=== PATIENT | male | born 1950 | race Caucasian/White ===

== ENCOUNTER 2017-01-02 07:18 | Emergency (ER) | payer MEDICARE, BC ==
--- NOTE | 2017-01-02 07:27 | EDM.PDOC ---
ED HPI GENERAL MEDICAL PROBLEM - General Chief Complaint: Bite:Animal, Insect Stated Complaint: BEE STING ON EYE Time Seen by Provider: 01/02/17 07:26 Source of Information: Reports: Patient, RN, RN Notes Reviewed History Limitations: Reports: No Limitations - History of Present Illness INITIAL COMMENTS - FREE TEXT/NARRATIVE: Arrives from home with c/o being stung near the Rt eye yesterday by a bee. He reports mild swelling and itching at the site afterwards, and required no specific treatment. However, last night he woke after sleeping several hours to find that the Rt eye was swollen shut. Denies pain. No other areas of itching or rash. Denies swelling of mouth, tongue, or throat. Denies cough, wheezing, or difficulty breathing. Onset Date: 01/01/17 Location: Reports: Face Severity: Moderate Improves with: Reports: None Worsens with: Reports: None Associated Symptoms: Reports: No Other Symptoms - Related Data Allergies Allergy/AdvReac Type Severity Reaction Status Date / Time Penicillins Allergy Cannot Verified 01/02/17 07:25 Remember Home Meds: Home Meds Aspirin [Ecotrin] 81 mg PO DAILY 01/02/17 [History] Lisinopril [Prinivil] 10 mg PO DAILY 01/02/17 [History] Simvastatin [Simvastatin] 10 mg PO DAILY 01/02/17 [History] Past Medical History - Past Health History Medical/Surgical History: Denies Medical/Surgical History Social & Family History - Family History Family Medical History: Noncontributory - Tobacco Use Smoking Status *Q: Never Smoker - Living Situation & Occupation Living situation: Reports: Occupation: Employed ED ROS GENERAL - Review of Systems Review Of Systems: ROS reveals no pertinent complaints other than HPI. ED EXAM, ANIMAL BITE - Physical Exam Exam: See Below Exam Limited By: No Limitations General Appearance: Alert, WD/WN, No Apparent Distress Eye Exam: Right Eye: Periorbital Changes (swelling, edema from bee sting), Left Eye: Normal Inspection, Bilateral Eye: EOMI, PERRL Ears: Normal External Exam Nose: Normal Inspection Throat/Mouth: Normal Inspection, Normal Lips, Normal Teeth, Normal Gums, Normal Oropharynx, Normal Voice, No Airway Compromise Head: Atraumatic, Normocephalic Neck: Normal Inspection, Supple, Non-Tender, Full Range of Motion Respiratory/Chest: No Respiratory Distress, Lungs Clear, Normal Breath Sounds, No Accessory Muscle Use Cardiovascular: Regular Rate, Rhythm Neurological: Alert, Oriented, CN II-XII Intact, Normal Cognition, Normal Gait, No Motor/Sensory Deficits Psychiatric: Normal Affect, Normal Mood Course - Vital Signs Last Recorded V/S: Last Vital Signs Temp 36.4 C 01/02/17 07:31 Pulse 65 01/02/17 07:31 Resp 16 01/02/17 07:31 BP 142/76 H 01/02/17 07:31 Pulse Ox 97 01/02/17 07:31 - Orders/Labs/Meds Orders: Active Orders 24 hr Category Date Time Status Loratadine [Claritin] Med 01/02/17 07:40 Once 10 mg PO ONETIME ONE predniSONE Med 01/02/17 07:39 Once 60 mg PO ONETIME ONE Medication Orders Loratadine (Claritin) 10 mg PO ONETIME ONE Stop: 01/02/17 07:41 Prednisone (Prednisone) 60 mg PO ONETIME ONE Stop: 01/02/17 07:40 Meds: Medications Generic Name Dose Route Start Last Admin Trade Name Jitendraq PRN Reason Stop Dose Admin Loratadine 10 mg 01/02/17 07:40 Claritin PO 01/02/17 07:41 ONETIME ONE Prednisone 60 mg 01/02/17 07:39 Prednisone PO 01/02/17 07:40 ONETIME ONE Departure - Departure Time of Disposition: 07:36 Disposition: Home, Self-Care 01 Condition: Good Clinical Impression: Local reaction to bee sting Qualifiers: Encounter type: initial encounter Injury intent: accidental or unintentional Qualified Code(s): T63.441A - Toxic effect of venom of bees, accidental ( unintentional), initial encounter - Discharge Information Instructions: Bee, Wasp, or Hornet Sting Forms: ED Department Discharge Additional Instructions: Take over the counter Claritin (Loratidine) 10m tablet daily until swelling resolves. Apply ice pack to eye frequently throughout the day for 5 to 10 minutes at a time until the swelling resolves. Rx: Prednisone 20mg Follow up in clinic if not completely improved in 3 days. - My Orders Last 24 Hours: My Active Orders 01/02/17 07:39 predniSONE 60 mg PO ONETIME ONE 01/02/17 07:40 Loratadine [Claritin] 10 mg PO ONETIME ONE - Assessment/Plan Last 24 Hours: My Active Orders 01/02/17 07:39 predniSONE 60 mg PO ONETIME ONE 01/02/17 07:40 Loratadine [Claritin] 10 mg PO ONETIME ONE
[2017-01-02 07:33] VITALS: BP 142/76
[2017-01-02] MEDS ORDERED: predniSONE 20 MG Tab PO ONE (07:39)
[2017-01-02] MEDS ORDERED: Loratadine 10 MG Tab PO ONE (07:40)
== END 2017-01-02 07:49 | disposition home or self-care (01) ==
LOC: DL.ED 07:18
DX: T63.441A Toxic effect of venom of bees, accidental (unintentional), initial encounter (principal); Z88.0 Allergy status to penicillin; Z79.82 Long term (current) use of aspirin; Z79.899 Other long term (current) drug therapy
CPT/HCPCS: 99282; A9270; 99283

== ENCOUNTER 2017-05-11 07:51 | Emergency (ER) | payer MEDICARE, BC ==
[2017-05-11] MEDS ORDERED: Sodium Chloride 0.9% 10 ML Syringe FLUSH PRN (07:53)
[2017-05-11] MEDS ORDERED: Aspirin 81 MG Tab.Chew PO ONE (07:59)
--- NOTE | 2017-05-11 07:59 | EDM.PDOC ---
ED HPI GENERAL MEDICAL PROBLEM - General Stated Complaint: CHEST PAIN Time Seen by Provider: 05/11/17 07:53 Source of Information: Reports: Patient History Limitations: Reports: No Limitations - History of Present Illness INITIAL COMMENTS - FREE TEXT/NARRATIVE: This 67 yo male patient reports to the ED with chest pain. The patient describes his current symptom as more of chest pressure rated at a 2-3/10 at the time of examination. The patient reports his symptoms started last night, got worse this morning, and have improved, but continues to have pressure now. The patient reports a past medical history of hypertension (patient reports he took his blood pressure medications last night as prescribed). The patient also reports he takes a aspirin at night (81 mg) which he took last night. The patient reports he initially thought his pain was acid reflux, but now thinks his symptoms are different than reflux. 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: Aspirin (last night) Mid-Sternal Chest Pain Score (Numeric/FACES): 6 - Related Data Allergies Allergy/AdvReac Type Severity Reaction Status Date / Time Penicillins Allergy Cannot Verified 05/11/17 08:04 Remember Home Meds: Home Meds Aspirin [Ecotrin] 81 mg PO DAILY 01/02/17 [History] Lisinopril [Prinivil] 10 mg PO DAILY 01/02/17 [History] Simvastatin [Simvastatin] 10 mg PO DAILY 01/02/17 [History] Past Medical History - Past Health History Medical/Surgical History: Denies Medical/Surgical History Cardiovascular History: Reports: High Cholesterol, Hypertension - Infectious Disease History Infectious Disease History: Reports: None Social & Family History - Family History Family Medical History: Noncontributory - Tobacco Use Smoking Status *Q: Never Smoker - Caffeine Use Caffeine Use: Reports: Coffee - Recreational Drug Use Recreational Drug Use: No - Living Situation & Occupation Living situation: Reports: Occupation: Employed ED ROS GENERAL - Review of Systems Review Of Systems: ROS reveals no pertinent complaints other than HPI. ED EXAM, GENERAL - Physical Exam Exam: See Below Exam Limited By: No Limitations General Appearance: Alert, WD/WN, Mild Distress Eye Exam: Bilateral Eye: EOMI, Normal Inspection, PERRL Ears: Normal External Exam, Normal Canal, Hearing Grossly Normal, Normal TMs Nose: Normal Inspection, Normal Mucosa, No Blood Throat/Mouth: Normal Inspection, Normal Lips, Normal Teeth, Normal Gums, Normal Oropharynx, Normal Voice, No Airway Compromise Head: Atraumatic, Normocephalic Neck: Normal Inspection, Supple, Non-Tender, Full Range of Motion Respiratory/Chest: No Respiratory Distress, Lungs Clear, Normal Breath Sounds, No Accessory Muscle Use, Chest Non-Tender Cardiovascular: Normal Peripheral Pulses, Regular Rate, Rhythm, No Edema, No Gallop, No JVD, No Murmur, No Rub GI/Abdominal: Normal Bowel Sounds, Soft, Non-Tender, No Organomegaly, No Distention, No Abnormal Bruit, No Mass (Male) Exam: Deferred Rectal (Males) Exam: Deferred Back Exam: Normal Inspection, Full Range of Motion, NT Extremities: Normal Inspection, Normal Range of Motion, Non-Tender, Normal Capillary Refill, No Pedal Edema Neurological: Alert, Oriented, CN II-XII Intact, Normal Cognition, Normal Gait, Normal Reflexes, No Motor/Sensory Deficits Psychiatric: Normal Affect, Normal Mood Skin Exam: Warm, Dry, Intact, Normal Color, No Rash Lymphatic: No Adenopathy Course - Vital Signs Last Recorded V/S: Last Vital Signs Temp 36.6 C 05/11/17 07:57 Pulse 68 05/11/17 08:42 Resp 20 05/11/17 08:42 BP 126/53 L 05/11/17 08:42 Pulse Ox 98 05/11/17 08:42 - Orders/Labs/Meds Orders: Active Orders 24 hr Category Date Time Status EKG Documentation Completion [RC] URGENT Care 05/11/17 07:52 Ordered Chest 1V Frontal [CR] Urgent Exams 05/11/17 07:52 Ordered INR,PT,PROTHROMBIN TIME [COAG] Stat Lab 05/11/17 08:53 Ordered Heparin Sodium/D5W [Heparin 25,000 Units in D5W 500 ML] Med 05/11/17 08:51 Ordered 25,000 units in 500 ml IV ASDIRECTED Sodium Chloride 0.9% @ 125 MLS/HR (1000ml) Med 05/11/17 08:30 Ordered Sodium Chloride 0.9% [Normal Saline] 1,000 ml IV ASDIRECTED Sodium Chloride 0.9% [Saline Flush] Med 05/11/17 07:53 Ordered 10 ml FLUSH ASDIRECTED PRN Saline Lock Insert [OM.PC] Routine Oth 05/11/17 07:53 Ordered Medication Orders Sodium Chloride (Normal Saline) 1,000 mls @ 125 mls/hr IV ASDIRECTED KRISH Last Admin: 05/11/17 08:23 Dose: 125 mls/hr Heparin Sodium/Dextrose (Heparin 25,000 Units In D5w 500 Ml) 25,000 units in 500 mls @ 0 mls/hr IV ASDIRECTED KRISH PRN Reason: 12 UNITS/KG/HR Last Admin: 05/11/17 08:58 Dose: 11.89 units/kg/hr, 25.9 mls/hr Sodium Chloride (Saline Flush) 10 ml FLUSH ASDIRECTED PRN PRN Reason: Keep Vein Open Last Admin: 05/11/17 08:03 Dose: 10 ml Labs: Laboratory Tests 05/11/17 05/11/17 Range/Units 08:03 08:03 WBC 11.1 H (5.0-10.0) 10^3/uL RBC 4.77 (4.6-6.2) 10^6/uL Hgb 14.6 (14.0-18.0) g/dL Hct 44.7 (40.0-54.0) % MCV 93.7 (80-100) fL MCH 30.6 (27.0-34.0) pg MCHC 32.7 L (33.0-35.0) g/dL Plt Count 246 (150-450) 10^3/uL Neut % (Auto) 77.6 H (42.2-75.2) % Lymph % (Auto) 13.1 L (20.5-50.1) % Owen % (Auto) 8.2 H (2-8) % Eos % (Auto) 0.8 L (1.0-3.0) % Baso % (Auto) 0.3 (0.0-1.0) % Sodium 137 (135-145) mmol/L Potassium 4.1 (3.6-5.0) mmol/L Chloride 103 (101-111) mmol/L Carbon Dioxide 25.0 (21.0-31.0) mmol/L Anion Gap 13.1 BUN 20 H (7-18) mg/dL Creatinine 1.0 (0.6-1.3) mg/dL Est Cr Clr Drug Dosing 88.03 mL/min Estimated GFR (MDRD) > 60 BUN/Creatinine Ratio 20.00 Glucose 152 H (74-105) mg/dL Calcium 9.4 (8.4-10.2) mg/dl Total Bilirubin 0.6 (0.2-1.0) mg/dL AST 44 H (10-42) IU/L ALT 22 (10-60) IU/L Alkaline Phosphatase 65 (42-121) IU/L Troponin I 1.00 H* (0.00-0.02) ng/ml Total Protein 7.1 (6.7-8.2) g/dl Albumin 4.1 (3.2-5.5) g/dl Globulin 3.0 Albumin/Globulin Ratio 1.37 Meds: Medications Generic Name Dose Route Start Last Admin Trade Name Freq PRN Reason Stop Dose Admin Sodium Chloride 1,000 mls @ 125 mls/hr 05/11/17 08:30 05/11/17 08:23 Normal Saline IV 125 mls/hr ASDIRECTED KRISH Administration Heparin Sodium/Dextrose 25,000 units in 500 mls @ 0 mls/hr 05/11/17 08:51 08:58 Heparin 25,000 Units In D5w 500 Ml IV 11.89 units/kg/hr ASDIRECTED KRISH 25.9 mls/hr 12 UNITS/KG/HR Administration Sodium Chloride 10 ml 05/11/17 07:53 05/11/17 08:03 Saline Flush FLUSH 10 ml ASDIRECTED PRN Administration Keep Vein Open Discontinued Medications Generic Name Dose Route Start Last Admin Trade Name Freq PRN Reason Stop Dose Admin Aspirin 324 mg 05/11/17 07:59 05/11/17 08:01 Aspirin PO 05/11/17 08:00 324 mg ONETIME ONE Administration Atorvastatin Calcium 80 mg 05/11/17 08:49 05/11/17 08:55 Lipitor PO 05/11/17 08:50 80 mg ONETIME ONE Administration Clopidogrel Bisulfate 600 mg 05/11/17 08:48 05/11/17 08:54 Plavix PO 05/11/17 08:49 600 mg ONETIME ONE Administration Heparin Sodium (Porcine) 4,000 units 05/11/17 08:52 05/11/17 08:56 Heparin Sodium IVPUSH 05/11/17 08:53 4,000 units .BOLUS ONE Administration Nitroglycerin 0.4 mg 05/11/17 08:18 05/11/17 08:22 Nitrostat SL 05/11/17 08:19 0.4 mg ONETIME ONE Administration Departure - Departure Time of Disposition: 08:59 Disposition: DC/Tfer to Acute Hospital 02 Reason for Transfer *Q: Other Condition: Fair Clinical Impression: Acute myocardial infarction Qualifiers: Myocardial infarction ST status: ST elevation myocardial infarction Involved coronary artery: unspecified coronary artery Qualified Code(s): I21.3 - ST elevation (STEMI) myocardial infarction of unspecified site Forms: Interfacility Transfer EMTALA Care Plan Goals: Discussed the history, examination, lab, EKG and x-ray results with Dr. Gresham ( Cardiology with [facility] in [place]). Dr. Gresham accepted the patient for continued evaluation and management. The patient was given 324 mg of aspirin, 0.4 mg of SL Nitro, 600 mg of oral Plavix, 80 mg of oral Lipitor, a heparin bolus and a heparin drip was started prior to the patient leaving our facility. The patient was transported by [facility]. - My Orders Last 24 Hours: My Active Orders 05/11/17 07:52 EKG Documentation Completion [RC] URGENT Chest 1V Frontal [CR] Urgent 05/11/17 07:53 Sodium Chloride 0.9% [Saline Flush] 10 ml FLUSH ASDIRECTED PRN Saline Lock Insert [OM.PC] Routine 05/11/17 08:30 Sodium Chloride 0.9% @ 125 MLS/HR (1000ml) Sodium Chloride 0.9% [Normal Saline] 1,000 ml IV ASDIRECTED 05/11/17 08:51 Heparin Sodium/D5W [Heparin 25,000 Units in D5W 500 ML] 25,000 units in 500 ml IV ASDIRECTED 05/11/17 08:53 INR,PT,PROTHROMBIN TIME [COAG] Stat - Assessment/Plan Last 24 Hours: My Active Orders 05/11/17 07:52 EKG Documentation Completion [RC] URGENT Chest 1V Frontal [CR] Urgent 05/11/17 07:53 Sodium Chloride 0.9% [Saline Flush] 10 ml FLUSH ASDIRECTED PRN Saline Lock Insert [OM.PC] Routine 05/11/17 08:30 Sodium Chloride 0.9% @ 125 MLS/HR (1000ml) Sodium Chloride 0.9% [Normal Saline] 1,000 ml IV ASDIRECTED 05/11/17 08:51 Heparin Sodium/D5W [Heparin 25,000 Units in D5W 500 ML] 25,000 units in 500 ml IV ASDIRECTED 05/11/17 08:53 INR,PT,PROTHROMBIN TIME [COAG] Stat
[2017-05-11] MEDS ORDERED: Nitroglycerin 0.4 MG Tab.SL SL ONE (08:18)
[2017-05-11] MEDS ORDERED: Sodium Chloride 0.9% 1,000 ML IV SCH (08:30)
[2017-05-11 08:31] LABS: CHLORIDE,CL 103 mmol/L (101-111); SODIUM,NA 137 mmol/L (135-145)
[2017-05-11 08:42] VITALS: BP 126/53
[2017-05-11] MEDS ORDERED: Clopidogrel 75 MG Tab PO ONE (08:48)
[2017-05-11] MEDS ORDERED: atorvaSTATin 20 MG Tab PO ONE (08:49)
[2017-05-11] MEDS ORDERED: Heparin Sodium/D5W 25,000 UNITS/500 ML BAG IV SCH (08:51)
[2017-05-11] MEDS ORDERED: Heparin Sodium 5,000 Units/ML Vial IVPUSH ONE (08:52)
--- NOTE | 2017-05-11 19:47 | EKG ---
05/11/2017 - SHAWNA EMMANUEL - EKG per my reading, shows sinus rhythm at a rate of 70s with inferior Q-waves and ST elevation. [facility] /[id number]
== END 2017-05-11 09:20 ==
LOC: DL.ED 07:51
DX: I21.3 ST elevation (STEMI) myocardial infarction of unspecified site (principal); I10 Essential (primary) hypertension; E78.00 Pure hypercholesterolemia, unspecified; Z79.82 Long term (current) use of aspirin; Z79.899 Other long term (current) drug therapy; Z88.0 Allergy status to penicillin
CPT/HCPCS: 36415; 71010; 80053; 84484; 85025; 85610; 93005; 96361; 96365; 96376; 99285; A9270; J1644; J7030; J7050; 93010